=== PATIENT | female | born 1955 | race African-American/Black ===

== ENCOUNTER → 2016-05-05 | Day surgery (SDC) | payer OTHER ==
[~2016-05-05] MED LIST: MULTI VITAMIN1 EACH
--- NOTE | ~2016-05-05 | OR ---
Unit #: [id number] #: [id number] Patient: NENITA MURCIA [id number] [facility] [address] [place], [place] [address] [id number] MR#: [id number] NAME: NENITA MURCIA ROOM: Date of Procedure: 05/05/2016 Admission Date: 05/05/2016 Surgeon: Jesus Alberto Granados M.D. : 1955 Attending Physician: Jesus Alberto Granados M.D. Primary Care Physician: Hortensia Morales OPERATIVE REPORT PROCEDURE PERFORMED Colonoscopy to cecum with biopsies. INDICATIONS FOR PROCEDURE The patient with personal history of colon cancer apparently at surgery 10 years ago, has not had a colonoscopy since. MEDICATIONS Monitored anesthesia. POSTOPERATIVE FINDINGS 1. 2 mm cecal polyp, removed using biopsy forceps. 2. 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 3. No other polyps, masses, or colitis was seen. 4. No clear anastomosis was seen suggesting previous surgery. PLAN Follow up on the pathology report. Repeat colonoscopy in 3 years. DESCRIPTION OF PROCEDURE The patient was explained of the procedure, risks, and benefits. She was brought to the endoscopy room. Propofol anesthesia was given. Rectal exam was done, which was normal. Colonoscope was lubricated, passed up the rectum, advanced under direct vision all the way to the cecum. Cecum was identified by ileocecal valve and appendiceal orifice. Small polyp seen in cecum was removed using biopsy forceps. I continued to pull the scope out carefully looking. No other polyps, masses, or colitis was seen. No clear anastomosis was seen. I retroflexed in the rectum, internal hemorrhoids noted. Gently, the scope was pulled out. She tolerated it well. Dictated by... Jam Abrams/jaradl TD: 05/06/2016 02:09 JOB #: [id number] Unit #: [id number] #: [id number] Patient: NENITA MURCIA OPERATIVE REPORT X Jesus Alberto Granados MD PROCEDURE OPERATIVE NOTE
== END | disposition home or self-care (01) ==
LOC: COPS 08:54
DX: Z12.11 Encounter for screening for malignant neoplasm of colon (principal); D12.0 Benign neoplasm of cecum; Q27.30 Arteriovenous malformation, site unspecified; K64.8 Other hemorrhoids; F17.210 Nicotine dependence, cigarettes, uncomplicated; Z85.038 Personal history of other malignant neoplasm of large intestine; Z90.49 Acquired absence of other specified parts of digestive tract
CPT/HCPCS: 88305